=== PATIENT | male | born 1995 | race Caucasian/White ===

== ENCOUNTER 2016-12-24 05:38 | Inpatient (IN) | payer MEDICAID, OTHER ==
[~2016-12-24] VITALS: Ht 182.9 cm; Wt 86.7 kg
[2016-12-24] VITALS (11 sets, daily range): BP systolic 112–137; BP diastolic 67–94; PULSE 60–178; RESP 16–55; TEMP 98–99.8; O2SAT 96–100
[~2016-12-24 05:38] MED LIST: AMOX500T PO; CHLO.12%30 SSP; HYDR-3580 PO; PERI8.6T PO
[2016-12-24] MEDS ORDERED: HALOPERIDOL LACTATE 5 MG/ML AMP IM ONE (05:45)
[2016-12-24] MEDS ORDERED: LORazepam 2 MG/ML VIAL IM ONE (05:45)
[2016-12-24] MEDS ORDERED: SODIUM CHLOR 0.9% 1000 ML INJ 1,000 ML IV SCH (06:11)
[2016-12-24] MEDS ORDERED: SODIUM CHLOR 0.9% 1000 ML INJ 1,000 ML IV ONE ×4 (06:15→17:30)
[2016-12-24] MEDS ORDERED: SODIUM CHLORIDE 0.9% FLUSH 5 ML FLUSH IVF PRN (06:15)
[2016-12-24] MEDS ORDERED: LIDOCAINE HCL 1% 50 ML VIAL INFIL ONE (06:30)
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
[2016-12-24 06:38] LABS: AUTOMATED NEUTROPHIL # 21.4 TH/MM3 (1.8-7.7); BASOPHIL # 0.2 TH/MM3 (0-0.2); BASOPHIL % 0.7 % (0.0-2.0); EOSINOPHIL # 0.2 TH/MM3 (0-0.4); EOSINOPHIL % 0.7 % (0.0-4.0); HEMATOCRIT 54.2 % (39.0-51.0); LYMPH % 21.9 % (9.0-44.0); LYMPHOCYTE # 6.4 TH/MM3 (1.0-4.8); MEAN CELL VOLUME 95.9 FL (80.0-100.0); MEAN CORPUSCULAR HEMOGLOBIN 30.3 PG (27.0-34.0); MEAN CORPUSCULAR HGB CONC 31.6 % (32.0-36.0); NEUT % 73.7 % (16.0-70.0); PLATELET COUNT 370 TH/MM3 (150-450); RED BLOOD COUNT 5.65 MIL/MM3 (4.50-5.90); RED CELL DISTRIBUTION WIDTH 14.3 % (11.6-17.2); WHITE BLOOD COUNT 29.1 TH/MM3 (4.0-11.0)
[2016-12-24 06:44] LABS: HEMO FLAGS AUTO DIFF
[2016-12-24 06:46] LABS: APTT (PATIENT) 25.7 SEC (24.3-30.1); INTERNATIONAL NORMALIZED RATIO 1.1 RATIO; PROTHROMBIN TIME - PATIENT 12.1 SEC (9.8-11.6)
--- NOTE | 2016-12-24 06:49 | RADRPT ---
EXAM DATE/TIME: 12/24/2016 06:31 [facility] COMPARISON: No previous studies available for comparison. INDICATIONS : Right hand laceration. MEDICAL HISTORY : None. SURGICAL HISTORY : None. ENCOUNTER: Initial ACUITY: 1 day PAIN SCORE: Non-responsive. LOCATION: Right hand. FINDINGS: Soft tissue laceration with patchy gas in the soft tissues seen in the region of the second webspace. No radiopaque foreign body seen. Bones are intact and normally aligned. CONCLUSION: Second webspace soft tissue injury without radiopaque foreign body or fracture. Yoseph Boateng MD on December 24, 2016 at 6:47 Board Certified Radiologist. This report was verified electronically.
[2016-12-24 06:56] LABS: AMPHETAMINE, URINE NEG (NEG); BACTERIA, URINE RARE /hpf; BARBITURATES, URINE NEG (NEG); BLOOD, URINE MOD (NEG); COCAINE, URINE NEG (NEG); COMMENT (UR) CATH-CULTURE IND; CULTURE IF INDICATED CATH CULTURE IND; GLUCOSE,URINE 150 mg/dL (NEG); HYALINE CAST, URINE 2 /lpf (RARE); KETONE, URINE NEG (NEG); MUCUS URINE FEW /lpf (OCC); NITRITE,URINE NEG (NEG); SQUAMOUS EPITHELIAL CELL URINE <1 /hpf (0-5); URINE COLOR YELLOW (YELLW/STRAW)
[2016-12-24 07:11] LABS: ALKALINE PHOSPHATASE 128 U/L (45-117); ALT (GPT) 36 U/L (12-78); AST (GOT) 72 U/L (15-37); TOTAL BILIRUBIN ADULT 0.7 MG/DL (0.2-1.0)
[2016-12-24 07:12] LABS: ACETAMINOPHEN LESS THAN 2.0 MCG/ML (10.0-30.0)
[2016-12-24 07:16] LABS: CHLORIDE 117 MEQ/L (98-107); SODIUM (NA) 148 MEQ/L (136-145)
[2016-12-24 07:20] LABS: BLOOD UREA NITROGEN 14 MG/DL (7-18); GLOMERULAR FILTRATION RATE 86 ML/MIN (>89)
[2016-12-24 07:21] LABS: ANION GAP 27 MEQ/L (5-15); POTASSIUM 3.1 MEQ/L (3.5-5.1)
[2016-12-24 07:24] LABS: BANDS 7 % (0-6); BASOPHILS 1 % (0-2); CORRECTED NUCLEATED RBC 1 /100 WBC (0-0); CREATINE KINASE 650 U/L (39-308); EOSINOPHILS 1 % (0-4); METAMYELOCYTES 1 % (0-1); MYELOCYTES 2 % (0-0); PLATELET ESTIMATE SMEAR NORMAL (NORMAL); PLATELET MORPHOLOGY NORMAL (NORMAL); POLYS (SEG NEUTROPHILS) 62 % (16-70); SCAN/DIFF FINAL DIFF MANUAL; WBC DIFF SAMPLE 100
[2016-12-24 07:38] LABS: CKMB 2.5 NG/ML (0.5-3.6)
[2016-12-24] MEDS ORDERED: CALCIUM GLUCONATE 10% 1 GM/10 ML VIAL IV PUSH ONE (07:45)
[2016-12-24] MEDS ORDERED: PIPERACIL-TAZO 4.5 GM PREMIX 100 ML IV ONE (07:45)
[2016-12-24] MEDS ORDERED: VANCOMYCIN INJ 1,000 MG in SODIUM CHLOR 0.9% 250 ML INJ 250 ML IV ONE (07:45)
[2016-12-24] MEDS ORDERED: CALCIUM GLUCONATE INJ 1 GM in SODIUM CHLORIDE 0.9% INJ 100 ML IV ONE (08:00)
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
--- NOTE | 2016-12-24 08:05 | RADRPT ---
EXAM DATE/TIME: 12/24/2016 07:47 [facility] COMPARISON: No previous studies available for comparison. INDICATIONS : Short of breath MEDICAL HISTORY : None. SURGICAL HISTORY : None. ENCOUNTER: Initial ACUITY: 1 day PAIN SCORE: Non-responsive. LOCATION: Bilateral chest FINDINGS: A single view of the chest demonstrates the lungs to be symmetrically aerated without evidence of mas s, infiltrate or effusion. The cardiomediastinal contours are unremarkable. Osseous structures are intact. CONCLUSION: Normal examination for a patient of this age. Jeffrey Lagos MD on December 24, 2016 at 8:03 Board Certified Radiologist. This report was verified electronically.
[2016-12-24] MEDS ORDERED: POTASSIUM CHLOR 20 MEQ PREMIX 100 ML IV ONE (08:15)
[2016-12-24] MEDS ORDERED: POTASSIUM CHLORIDE 20 MEQ CONTROLLED RELEASE TAB PO ONE (08:15)
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
--- NOTE | 2016-12-24 09:01 | RADRPT ---
EXAM DATE/TIME: 12/24/2016 08:16 [facility] COMPARISON: No previous studies available for comparison. INDICATIONS : Altered mental status. RADIATION DOSE: 38.28 CTDIvol (mGy) MEDICAL HISTORY : Substance abuse. SURGICAL HISTORY : None. ENCOUNTER: Initial ACUITY: 1 day PAIN SCALE: 0/10 LOCATION: cranial TECHNIQUE: Multiple contiguous axial images were obtained of the head. Using automated exposure control and adj ustment of the mA and/or kV according to patient size, radiation dose was kept as low as reasonably a chievable to obtain optimal diagnostic quality images. FINDINGS: CEREBRUM: The ventricles are normal for age. No evidence of midline shift, mass lesion, hemorrhage or acute in farction. No extra-axial fluid collections are seen. POSTERIOR FOSSA: The cerebellum and brainstem are intact. The 4th ventricle is midline. The cerebellopontine angle i s unremarkable. EXTRACRANIAL: The visualized portion of the orbits is intact. SKULL: The calvaria is intact. No evidence of skull fracture. CONCLUSION: Normal examination for a patient of this age. Jeffrey Lagos MD on December 24, 2016 at 8:59 Board Certified Radiologist. This report was verified electronically.
[2016-12-24] MEDS ORDERED: LORazepam 2 MG/ML VIAL IV PUSH PRN ×3 (09:15)
[2016-12-24] MEDS ORDERED: NS + KCL 20 MEQ INJ 1,000 ML IV SCH (09:15)
[2016-12-24] MEDS ORDERED: FLUMAZENIL 0.5 MG/5 ML VIAL IV PUSH PRN (09:15)
[2016-12-24] MEDS ORDERED: LORazepam 2 MG TAB PO PRN (09:15)
[2016-12-24] MEDS ORDERED: SODIUM CHLORIDE 0.9% FLUSH 5 ML FLUSH IV FLUSH PRN (09:15)
[2016-12-24] MEDS: ENOXAPARIN SODIUM 30 MG/0.3 ML SYRINGE SQ SCH (09:50)
--- NOTE | 2016-12-24 12:49 | EKG ---
Date Performed: 12/24/2016 Time Performed: 08:03:14 PTAGE: 21 years EKG: SINUS TACHYCARDIA NONSPECIFIC T-WAVE ABNORMALITY ABNORMAL ECG NO PREVIOUS TRACING DOCTOR: Johnathan Sousa Interpretating Date/Time 12/24/2016 12:48:39
[2016-12-24] MEDS ORDERED: ASPIRIN 81 MG CHEW TAB TUBE ONE (14:00)
[2016-12-24] MEDS ORDERED: HEPARIN-D5W INJ 250 ML IV SCH (14:00)
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
[2016-12-24 15:59] LABS: CKMB 48.6 NG/ML (0.5-3.6)
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
[2016-12-24 16:02] LABS: BICARBONATE 16.8 MEQ/L (21.0-32.0); POTASSIUM 5.4 MEQ/L (3.5-5.1)
[2016-12-24] MEDS ORDERED: CALCIUM GLUCONATE INJ 1 GM in DEXTROSE 5% IN WATER 100ML INJ 100 ML IV ONE ×2 (17:30)
[2016-12-24] MEDS: SODIUM CHLOR 0.9% 1000 ML INJ 1,000 ML IV SCH (17:30)
[2016-12-24] MEDS ORDERED: SODIUM POLYSTYRENE SULFONATE SUSP 15 GM/60 ML CUP PO ONE (17:30)
[2016-12-24] MEDS ORDERED: HEPARIN SODIUM - IV 10,000 UNITS/10 ML VIAL IV PRN ×2 (20:00)
[2016-12-24 20:37] LABS: BICARBONATE 17.6 MEQ/L (21.0-32.0); MAGNESIUM 3.4 MG/DL (1.5-2.5); POTASSIUM 4.6 MEQ/L (3.5-5.1)
[2016-12-24] MEDS: SODIUM CHLORIDE 0.9% FLUSH 5 ML FLUSH IV FLUSH SCH (21:27)
[2016-12-24] MEDS: PRAVASTATIN SOD 40 MG TAB PO SCH (21:29)
[2016-12-24] MEDS: LORazepam 1 MG TAB PO PRN (22:10)
[2016-12-25] VITALS (24 sets, daily range): BP systolic 125–141; BP diastolic 56–92; PULSE 64–108; RESP 16–17; TEMP 98.5–99.6; O2SAT 95–98
[2016-12-25] MEDS ORDERED: HALOPERIDOL LACTATE 5 MG/ML AMP IM ONE (01:15)
[2016-12-25] MEDS: LORazepam 2 MG/ML VIAL IV PUSH PRN ×2 (01:15→03:45)
[2016-12-25] MEDS ORDERED: HALOPERIDOL LACTATE 5 MG/ML AMP IM PRN ×2 (01:15→02:15)
[2016-12-25] MEDS: SODIUM CHLOR 0.9% 1000 ML INJ 1,000 ML IV SCH ×3 (02:09→17:58)
[2016-12-25 07:28] LABS: AUTOMATED NEUTROPHIL # 11.8 TH/MM3 (1.8-7.7); BASOPHIL % 0.3 % (0.0-2.0); EOSINOPHIL % 0.2 % (0.0-4.0); HEMATOCRIT 37.6 % (39.0-51.0); HEMO FLAGS DIFF FINAL; LYMPH % 9.2 % (9.0-44.0); LYMPHOCYTE # 1.3 TH/MM3 (1.0-4.8); MEAN CELL VOLUME 90.1 FL (80.0-100.0); MEAN CORPUSCULAR HEMOGLOBIN 29.7 PG (27.0-34.0); MONO % 7.6 % (0.0-8.0); NEUT % 82.7 % (16.0-70.0); PLATELET COUNT 148 TH/MM3 (150-450); RED BLOOD COUNT 4.17 MIL/MM3 (4.50-5.90); RED CELL DISTRIBUTION WIDTH 13.6 % (11.6-17.2); WHITE BLOOD COUNT 14.2 TH/MM3 (4.0-11.0)
[2016-12-25 07:32] LABS: BICARBONATE 16.8 MEQ/L (21.0-32.0); HDL CHOLESTEROL 45.8 MG/DL (40.0-60.0); INDIRECT BILIRUBIN 0.7 MG/DL (0.0-0.8); POTASSIUM 4.3 MEQ/L (3.5-5.1); TOTAL BILIRUBIN ADULT 0.9 MG/DL (0.2-1.0)
[2016-12-25] MEDS: ASPIRIN EC 81 MG TABEC PO SCH (09:00)
[2016-12-25] MEDS: SODIUM CHLORIDE 0.9% FLUSH 5 ML FLUSH IV FLUSH SCH ×2 (09:00→20:36)
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
[2016-12-25] MEDS: ENOXAPARIN SODIUM 30 MG/0.3 ML SYRINGE SQ SCH (09:10)
--- NOTE | 2016-12-25 10:26 | EKG ---
Date Performed: 12/24/2016 Time Performed: 18:07:44 PTAGE: 21 years EKG: Sinus rhythm Rightward axis Borderline ECG Compared to prior tracing no significant change PREVIOUS TRACING : 12/24/2016 13.06 DOCTOR: Juan Carlos Mascorro Interpretating Date/Time 12/25/2016 10:24:22
--- NOTE | 2016-12-25 10:26 | EKG ---
Date Performed: 12/24/2016 Time Performed: 11:16:41 PTAGE: 21 years EKG: SINUS TACHYCARDIA ABNORMAL RHYTHM ECG Compared to prior tracing no significant change PREVIOUS TRACING : 12/24/2016 08.03 DOCTOR: Juan Carlos Mascorro Interpretating Date/Time 12/25/2016 10:24:40
--- NOTE | 2016-12-25 10:26 | EKG ---
Date Performed: 12/24/2016 Time Performed: 13:06:14 PTAGE: 21 years EKG: Sinus rhythm NORMAL ECG Compared to prior tracing no significant change PREVIOUS TRACING : 12/24/2016 11.16 DOCTOR: Juan Carlos Mascorro Interpretating Date/Time 12/25/2016 10:24:30
--- NOTE | 2016-12-25 12:42 | EC ---
Study Study Date:12/25/2016 STUDY CONCLUSIONS SUMMARY - Left ventricle: The cavity size was normal. Wall thickness was normal. Systolic function was normal. The estimated ejection fraction was in the range of 55% to 60%. Wall motion was normal; there were no regional wall motion abnormalities. - Pulmonary arteries: PA peak pressure: 32mm Hg (S). Impressions: Normal study. If LV function is below 40, please consider prescribing an ACEI or ARB or document rationale for non-use. PROCEDURE DATA STUDY STATUS: Elective. Procedure: Transthoracic echocardiography. Image quality was good. Scanning was performed from the parasternal, apical, and subcostal acoustic windows. Study completion: The patient tolerated the procedure well. Transthoracic echocardiography. M-mode, complete 2D, complete spectral Doppler, and color Doppler. Patient status: Inpatient. CARDIAC ANATOMY LEFT VENTRICLE: The cavity size was normal. Wall thickness was normal. Systolic function was normal. The estimated ejection fraction was in the range of 55% to 60%. Wall motion was normal; there were no regional wall motion abnormalities. AORTIC VALVE: Trileaflet; normal thickness leaflets. Doppler: Transvalvular velocity was within the normal range. There was no stenosis. No regurgitation. AORTA: Aortic root: The aortic root was normal in size. MITRAL VALVE: Structurally normal valve. Doppler: Transvalvular velocity was within the normal range. There was no evidence for stenosis. No regurgitation. Peak gradient: 4mm Hg (D). LEFT ATRIUM: The atrium was normal in size. RIGHT VENTRICLE: The cavity size was normal. Wall thickness was normal. PULMONIC VALVE: Doppler: Transvalvular velocity was within the normal range. There was no evidence for stenosis. No regurgitation. TRICUSPID VALVE: Structurally normal valve. Doppler: Transvalvular velocity was within the normal range. No regurgitation. PULMONARY ARTERY: The main pulmonary artery was normal-sized. Systolic pressure was within the normal range. RIGHT ATRIUM: The atrium was normal in size. PERICARDIUM: There was no pericardial effusion. SYSTEMIC VEINS: Inferior vena cava: The vessel was normal in size. BASIC MEASUREMENTS ADULT Normal Left ventricle LV internal dimension, ED, chordal level, *42.6 mm 43-52 PLAX LV internal dimension, ES, chordal level, 31.9 mm 23-38 PLAX Fractional shortening, chordal level, PLAX *25 % >29 LV posterior wall thickness, ED 6.12 mm IVS/LVPW ratio, ED *1.49 <1.3 Ventricular septum Septal thickness, ED 9.13 mm Aortic valve Leaflet separation 21 mm 15-26 Left atrium Anterior-posterior dimension 36 mm Right ventricle RV internal dimension, ED, PLAX 24.9 mm 19-38 BASIC MEASUREMENTS ADULT Normal Aortic valve Leaflet separation 21 mm 15-26 Aorta Root diameter, ED 30 mm 20-37 DOPPLER MEASUREMENTS ADULT Normal Main pulmonary artery Pressure, S *32 mm Hg =30 Mitral valve Peak E-wave velocity 100 cm/s Peak A-wave velocity 45.2 cm/s Peak gradient, D 4 mm Hg Peak E/A ratio 2.2 Tricuspid valve Regurgitant peak velocity 234 cm/s Peak RV-RA gradient, S 22 mm Hg Maximal regurgitant velocity 234 cm/s Systemic veins Estimated CVP 10 mm Hg Right ventricle RV pressure, S *32 mm Hg <30 LEGEND: Mean values are shown as u=mean value. Asterisk (*) crouch values outside specified normal range. Prepared and signed by Juan Carlos Mascorro [id number]
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
[2016-12-25] MEDS: risperiDONE 1 MG TAB PO SCH ×2 (15:06→20:36)
[2016-12-25 15:30] LABS: BICARBONATE 16.2 MEQ/L (21.0-32.0); POTASSIUM 4.1 MEQ/L (3.5-5.1)
--- NOTE | 2016-12-25 15:45 | HHI.PR ---
Subjective Remarks Follow-up for altered mental status, renal failure Patient became acutely paranoid last night, became combative, patient restraint. The patient feels better and remembers everything that happened last night. Patient feels better compared to yesterday, no nausea or vomiting but still with generalized soreness. Creatinine is worsening. Objective Vitals Vital Signs Date Time Temp Pulse Resp B/P Pulse Ox O2 Delivery O2 Flow Rate FiO2 12/25/16 13:00 75 12/25/16 12:00 98.8 94 16 137/81 95 12/25/16 12:00 88 12/25/16 11:00 82 12/25/16 10:00 77 12/25/16 09:00 107 12/25/16 08:45 98.9 87 16 125/74 96 12/25/16 08:00 83 12/25/16 07:00 81 12/25/16 05:01 99.6 84 16 131/76 95 12/25/16 05:00 84 12/25/16 04:00 84 12/25/16 03:00 78 12/25/16 02:00 76 12/25/16 00:00 83 12/24/16 23:00 99.8 85 16 129/78 96 12/24/16 23:00 73 12/24/16 22:00 60 12/24/16 21:00 88 12/24/16 20:00 99.7 66 16 132/94 96 12/24/16 20:00 89 12/24/16 19:00 89 12/24/16 16:30 98.0 78 16 134/86 98 I/O 12/24/16 12/24/16 12/24/16 12/25/16 12/25/16 12/25/16 07:00 15:00 23:00 07:00 15:00 23:00 Output Total 800 ml 250 ml Balance -800 ml -250 ml Output Urine Total 800 ml 250 ml # Voids 0 0 # Bowel Movements 1 Result Diagram: 12/25/16 0620 12/25/16 1447 Objective Remarks GENERAL: Not in acute distress, well-nourished. Unkempt. HEAD: Atraumatic. Normocephalic. No temporal or scalp tenderness. EYES: PERRL, full EOMs, no jaundice, nonicteric, pink conjunctivae without injection, moist mucosa ENT: Nose without bleeding, purulent drainage. Throat without erythema, tonsillar hypertrophy or exudate. Dry oral mucosa. NECK: Trachea midline, no mass, no obvious thyromegaly. CARDIOVASCULAR: Regular rate, rhythm without murmurs, gallops, or rubs. RESPIRATORY: Clear to auscultation with normal respiratory effort. Breath sounds equal bilaterally. No use of accessory muscles of respiration. GASTROINTESTINAL: Abdomen soft, normal bowel sounds, non-tender, nondistended. No hepato-splenomegaly or palpable mass. No guarding. CORY and exam deferred. MUSCULOSKELETAL: Extremities without clubbing, cyanosis, or edema. Distal pulses intact, 2+ bilaterally. Left hand dressings in place. Right foot dorsal , medial aspect, with circumscribed area of erythema, tenderness and swelling. Small laceration left plantar aspect, first great toe. INTEGUMENTARY: Warm and dry, no rash of generalized distribution. NEUROLOGICAL: Awake, alert, oriented 3. No obvious cranial nerve deficits. Moves all 4 extremities, muscle strength testing 5 over 5. Motor and sensory grossly within normal limits. .Supple neck, no meningeal signs. No focal neurologic deficits. Calm. A/P Assessment and Plan This is a 21-year-old male admitted for altered mental status and possible sepsis Acute toxic metabolic encephalopathy possibly secondary to Xanax withdrawal- likely secondary to metabolic disturbance and possible sepsis. Urinalysis unremarkable for infection, chest x-ray personally reviewed is negative. Continue IVF, antibiotics as below. CIMO protocol, became combative last night, psychiatry consulted, continue restraints for now Probable sepsis, rule out right foot cellulitis- patient with leukocytosis, tachycardia, and possible cellulitis, urinalysis and chest x-ray as above are negative. Continue Ancef, x-ray of the foot revealed previous fracture. Obtain records from [facility], allegedly there was a fracture previously , status post suturing. LFTs improving Acute renal failure possibly secondary to rhabdomyolysis-check urinalysis, ultrasound of the kidneys, consult nephrology. Continue IVF. Severe dehydration-continue IVF. Hyponatremia-likely secondary to dehydration, continue IVF Hypokalemia-replaced Hypocalcemia-replace again today. Metabolic acidosis- continue IVF Mild troponin elevation-no cardiac history, patient is a smoker, no chest pain. Cardiology has seen the patient, troponin release likely secondary to metabolic disturbance, CT scan of the coronaries. If negative, no further diagnostics. DVT prophylaxis: Lovenox Discussed with patient's mother Keon Lindquist MD Dec 25, 2016 15:45
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
[2016-12-25] MEDS: PRAVASTATIN SOD 40 MG TAB PO SCH (20:36)
[2016-12-25] MEDS: SODIUM BICARBONATE 8.4% INJ 75 MEQ in SODIUM CHLOR 0.45% 1000 ML INJ 1,000 ML IV SCH (20:36)
[2016-12-25] MEDS: LORazepam 1 MG TAB PO PRN (21:30)
[2016-12-25] MEDS: ONDANSETRON HCL 4 MG/2 ML VIAL IV PUSH PRN (22:14)
[2016-12-25] MEDS ORDERED: ACETAMINOPHEN 325 MG TAB PO ONE (22:15)
[2016-12-26] VITALS (25 sets, daily range): BP systolic 132–153; BP diastolic 76–89; PULSE 50–80; RESP 16–20; TEMP 98.3–99.2; O2SAT 95–98
[2016-12-26] MEDS: SODIUM BICARBONATE 8.4% INJ 75 MEQ in SODIUM CHLOR 0.45% 1000 ML INJ 1,000 ML IV SCH ×5 (01:13→17:52)
[2016-12-26] MEDS: LORazepam 1 MG TAB PO PRN (04:40)
[2016-12-26 06:26] LABS: BICARBONATE 18.8 MEQ/L (21.0-32.0); POTASSIUM 3.9 MEQ/L (3.5-5.1)
[2016-12-26 06:41] LABS: CKMB 7.6 NG/ML (0.5-3.6)
[2016-12-26] MEDS: SODIUM CHLORIDE 0.9% FLUSH 5 ML FLUSH IV FLUSH SCH ×2 (08:52→21:02)
[2016-12-26] MEDS: risperiDONE 1 MG TAB PO SCH ×2 (08:52→20:54)
[2016-12-26] MEDS: ONDANSETRON HCL 4 MG/2 ML VIAL IV PUSH PRN (08:52)
[2016-12-26] MEDS: ASPIRIN EC 81 MG TABEC PO SCH (08:52)
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
--- NOTE | 2016-12-26 12:58 | HHI.PR ---
Subjective Remarks Follow-up for renal failure, rhabdomyolysis Good urine output, creatinine still increasing, complaining of generalized soreness but better, but now also with abdominal pain, nausea and vomiting post prandial material, associated with diarrhea, loose stools, nonbloody. Objective Vitals Vital Signs Date Time Temp Pulse Resp B/P Pulse Ox O2 Delivery O2 Flow Rate FiO2 12/26/16 07:30 98.9 77 20 132/85 95 12/26/16 06:00 62 12/26/16 05:00 62 12/26/16 04:00 59 12/26/16 03:00 56 12/26/16 03:00 98.5 60 16 134/76 98 12/26/16 02:00 52 12/26/16 01:00 61 12/26/16 00:15 98.3 62 16 132/76 98 12/26/16 00:00 61 12/25/16 23:00 67 12/25/16 22:00 79 12/25/16 21:00 89 12/25/16 20:00 98.8 75 16 141/92 98 12/25/16 20:00 78 12/25/16 19:00 64 12/25/16 18:00 64 12/25/16 17:00 69 12/25/16 16:00 74 12/25/16 15:50 98.5 108 17 133/56 95 12/25/16 15:00 72 12/25/16 13:00 75 I/O 12/25/16 12/25/16 12/25/16 12/26/16 12/26/16 12/26/16 07:00 15:00 23:00 07:00 15:00 23:00 Intake Total 2480 ml 2240 ml Output Total 550 ml Balance 2480 ml 1690 ml Intake Oral 480 ml 240 ml IV Total 2000 ml 2000 ml Output Urine Total 550 ml # Voids 4 Result Diagram: 12/25/16 0620 12/26/16 0515 Objective Remarks GENERAL: Not in acute distress, well-nourished. Unkempt. HEAD: Atraumatic. Normocephalic. EYES: PERRL, full EOMs, no jaundice, nonicteric, pink conjunctivae ENT: Nose without bleeding, purulent drainage. Dry oral mucosa. NECK: Trachea midline, no mass, no obvious thyromegaly. CARDIOVASCULAR: Regular rate, rhythm without murmurs, gallops, or rubs. RESPIRATORY: Clear to auscultation with normal respiratory effort. Breath sounds equal bilaterally. No use of accessory muscles of respiration. GASTROINTESTINAL: Abdomen soft, normal bowel sounds, non-tender, nondistended. MUSCULOSKELETAL: Extremities without clubbing, cyanosis, or edema. INTEGUMENTARY: Warm and dry, no rash of generalized distribution. NEUROLOGICAL: Sleepy but easily arousable, oriented 3, no focal deficits. Calm. A/P Assessment and Plan This is a 21-year-old male admitted for altered mental status and possible sepsis Acute toxic metabolic encephalopathy possibly secondary to Xanax withdrawal- likely secondary to metabolic disturbance and possible sepsis. Urinalysis unremarkable for infection, chest x-ray personally reviewed is negative. Continue IVF, antibiotics as below. CIWA protocol, patient now more calm, hold off on strengths. Probable sepsis, rule out right foot cellulitis- patient with leukocytosis, tachycardia, and possible cellulitis, urinalysis and chest x-ray as above are negative. Continue Ancef, x-ray of the foot revealed previous fracture. Obtain records from [facility], allegedly there was a fracture previously , status post suturing. LFTs improving Diarrhea-patient complaining of abdominal pain across the transverse upper quadrant and left lower quadrant, check CT scan of the abdomen. Send for C. difficile. Recheck CBC and BMP tomorrow. Start Flagyl. Acute renal failure possibly secondary to rhabdomyolysis- ultrasound unremarkable, nephrology following, continue IVF. Severe dehydration-continue IVF. Hyponatremia-likely secondary to dehydration, continue IVF Hypokalemia-replaced Hypocalcemia-replace again today. Metabolic acidosis- continue IVF Mild troponin elevation-no cardiac history, patient is a smoker, no chest pain. Cardiology has seen the patient, troponin release likely secondary to metabolic disturbance, CT scan of the coronaries. If negative, no further diagnostics. DVT prophylaxis: Lovenox Discussed with patient's mother Keon Lindquist MD Dec 26, 2016 12:58
[2016-12-26] MEDS ORDERED: DIATRIZOATE MEGLUM/DIATRIZOATE SOD 9 ML CUP PO ONE (14:00)
[2016-12-26] MEDS ORDERED: POTASSIUM CHLORIDE 20 MEQ CONTROLLED RELEASE TAB PO ONE (14:15)
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
[2016-12-26] MEDS: metroNIDAZOLE 500 MG INJ 100 ML IV SCH ×2 (16:16→20:54)
[2016-12-26 19:17] LABS: C. DIFF EPI 027 PRESUMPTIVE NEGATIVE (NEGATIVE)
[2016-12-26 19:54] LABS: C. DIFF TOXIN PCR POSITIVE (NEGATIVE)
--- NOTE | 2016-12-26 20:14 | RADRPT ---
EXAM DATE/TIME: 12/26/2016 19:45 [facility] COMPARISON: No previous studies available for comparison. INDICATIONS : Abdominal pain; evaluate for colitis. ORAL CONTRAST: Prescribed oral contrast ingested. RADIATION DOSE: 6.88 CTDIvol (mGy) MEDICAL HISTORY : None SURGICAL HISTORY : None. ENCOUNTER: Initial ACUITY: 1 day PAIN SCALE: 5/10 LOCATION: Abdomen/pelvis TECHNIQUE: Volumetric scanning of the abdomen and pelvis was performed. Using automated exposure control and ad justment of the mA and/or kV according to patient size, radiation dose was kept as low as reasonably achievable to obtain optimal diagnostic quality images. FINDINGS: There are bilateral pleural effusions being mild to moderate on the right and mild on the left. The liver, spleen, pancreas, adrenal glands and kidneys appear grossly normal for a noncontrast CT examin ation. There is edema/fluid seen in the annika hepatis region and the right paracolic gutter region. The bowel appears unremarkable for a standard CT examination. There is a mild amount of ascites see n in the pelvis. There is a small amount of air seen within the urinary bladder. A Montgomery catheter i s not seen. CONCLUSION: 1. Fluid at the annika hepatis region and paracolic gutter region and ascites. This is nonspecific. Some of the ascites is centered around the pancreatic head region raising the possibility of pancreat itis. The exact cause of the ascites is not known. 2. The colon appears grossly normal. 3. A small amount of air within the bladder appears to be correlated with the patient being recently catheterized. 4. Mild to moderate right pleural effusion and mild left pleural effusion. Yoseph Triplett MD on December 26, 2016 at 19:57 Board Certified Radiologist. This report was verified electronically.
[2016-12-26] MEDS: PRAVASTATIN SOD 40 MG TAB PO SCH (20:54)
[2016-12-27 00:07] VITALS: BP 139/83; PULSE 52; RESP 18; TEMP 100.3; O2SAT 95
[2016-12-27] MEDS: SODIUM BICARBONATE 8.4% INJ 75 MEQ in SODIUM CHLOR 0.45% 1000 ML INJ 1,000 ML IV SCH ×5 (01:41→21:10)
[2016-12-27 03:30] VITALS: BP 139/66; PULSE 57; RESP 20; TEMP 98.5; O2SAT 94
[2016-12-27] MEDS: metroNIDAZOLE 500 MG INJ 100 ML IV SCH ×3 (06:01→22:39)
[2016-12-27 08:00] VITALS: BP 152/85; PULSE 50; RESP 20; TEMP 98.5; O2SAT 94
[2016-12-27] MEDS: risperiDONE 1 MG TAB PO SCH ×2 (09:14→22:38)
[2016-12-27] MEDS: ASPIRIN EC 81 MG TABEC PO SCH (09:15)
[2016-12-27] MEDS: SODIUM CHLORIDE 0.9% FLUSH 5 ML FLUSH IV FLUSH SCH ×2 (09:16→22:38)
[2016-12-27 12:00] VITALS: BP 136/74; PULSE 56; RESP 20; TEMP 98.7; O2SAT 93
[2016-12-27 14:13] LABS: AUTOMATED NEUTROPHIL # 7.9 TH/MM3 (1.8-7.7); BASOPHIL % 0.4 % (0.0-2.0); EOSINOPHIL # 0.2 TH/MM3 (0-0.4); EOSINOPHIL % 1.6 % (0.0-4.0); HEMATOCRIT 35.6 % (39.0-51.0); HEMO FLAGS DIFF FINAL; LYMPH % 13.4 % (9.0-44.0); LYMPHOCYTE # 1.4 TH/MM3 (1.0-4.8); MEAN CELL VOLUME 88.1 FL (80.0-100.0); MEAN CORPUSCULAR HGB CONC 34.1 % (32.0-36.0); MONO % 8.1 % (0.0-8.0); NEUT % 76.5 % (16.0-70.0); PLATELET COUNT 130 TH/MM3 (150-450); RED BLOOD COUNT 4.04 MIL/MM3 (4.50-5.90); RED CELL DISTRIBUTION WIDTH 13.3 % (11.6-17.2); WHITE BLOOD COUNT 10.4 TH/MM3 (4.0-11.0)
[2016-12-27 14:36] LABS: BICARBONATE 23.4 MEQ/L (21.0-32.0); MAGNESIUM 2.1 MG/DL (1.5-2.5); POTASSIUM 3.7 MEQ/L (3.5-5.1)
[2016-12-27 15:14] LABS: CKMB 1.8 NG/ML (0.5-3.6)
[2016-12-27 16:00] VITALS: BP 158/90; PULSE 50; RESP 20; TEMP 98.9; O2SAT 95
[2016-12-27] MEDS ORDERED: MORPHINE SULFATE 8 MG/ML INJ IV PUSH PRN (16:00)
--- NOTE | 2016-12-27 18:11 | HHI.NPPN ---
Subjective History of Present Illness 21-year-old male apparently with a history of substance abuse. His mother was by the bedside who provided some history. Patient himself is not cooperative. Apparently this patient was admitted to this institution in the morning of December 24, 2016. There is a history of the patient being found confused, agitated with paranoid behavior. Initially his creatinine level was 1.0 but was evidence of hyponatremia, hypokalemia and metabolic acidosis with a high anion gap. CPK level was initially 650 subsequently deepa to a level 6338 yesterday. Patient also developed progressive azotemia. Creatinine level on day of consultation was 4.04. Patient himself not forthcoming in regard to exactly what he used except that he was smoking marijuana. The mother however indicated to me that this patient has used synthetic marijuana previously. Interval History Patient sitting up in bed. No verbal complaints. Mother by bedside. Objective Data Data 12/26/16 12/27/16 19:00 07:00 Intake Total 3500 ml Output Total 1300 ml 250 ml Balance 2200 ml -250 ml Intake Oral 1000 ml IV Total 2500 ml Output Urine Total 1300 ml 250 ml # Voids 1 # Bowel Movements 2 2 Vital Signs Date Time Temp Pulse Resp B/P Pulse Ox O2 Delivery O2 Flow Rate FiO2 12/27/16 09:00 Room Air 12/27/16 08:00 98.5 50 20 152/85 94 12/27/16 08:00 Room Air 12/27/16 03:30 98.5 57 20 139/66 94 12/27/16 00:07 100.3 52 18 139/83 95 12/26/16 20:14 98.5 57 18 143/80 95 12/26/16 18:10 143/80 -: 12/27/16 1332 12/27/16 1332 Physical Exam General Appearance: No Acute Distress Eyes Eye Exam: Pupils Equal, Pupils Reactive Throat Throat Exam: Oral Mucosa [place] & Moist Neck Neck Exam: Neck Supple, Trachea Midline Pulmonary Resp Exam: Clear Bilaterally, Breath Sounds Equal Cardiology CV Exam: Regular, Normal Sinus Rhythm Gastrointestinal/Abdomen GI Exam: Soft, Non-Tender Integumentary Skin Exam: Clear, Warm Extremeties Extremities Exam: No Edema Neurologic Neuro Exam: Alert, Awake Psychiatric Psych Exam: Appropriate Responses Assessment/Plan Problem List: (1) ALIYAH (acute kidney injury) Plan: . Patient's creatinine level today slightly better than yesterday. Hopefully this is the peak with subsequent improvement in renal indices. As will be determined tomorrow. At this point in time reduce IV fluids. I counseled the patient regarding the probable etiology of his acute renal failure. He was strongly advised to avoid substance abuse in the future which could result in recurrence of acute kidney injury which could be permanent with requirement for dialytic support. That of course remains the patient's decision. I believe that the patient's initial acute renal failure multifactorial. Contributory factors include dehydration given the fact that the patient had hyponatremia on presentation with high hematocrit. In addition the patient appears to have rhabdomyolysis and may have sustained an acute kidney injury secondary to same. In addition use of synthetic marijuana which actually refers to 100s of possible substance combinations can be associated with rhabdomyolysis as well as acute kidney injury so I do have a high suspicion of the patient did utilize synthetic marijuana prior to presentation. Medications should be adjusted for the patient's estimated GFR if clinically indicated. Avoid agents with significant potential for nephrotoxicity possible including NSAIDs for analgesia, iodine contrast agents. Gadolinium is contraindicated if the GFR is below 30. (2) Rhabdomyolysis Plan: CPK improving slowly. (3) Metabolic acidosis Plan: Improving. Continue to monitor. (4) Polysubstance abuse Plan: Problem Qualifiers (1) Rhabdomyolysis: Qualified Code: M62.82 - Non-traumatic rhabdomyolysis Willow Mathews MD Dec 27, 2016 18:11
--- NOTE | 2016-12-27 18:27 | HHI.PR ---
Subjective Remarks patient feels better, lucid, abdominal pain still present but better, good UO Objective Vitals Vital Signs Date Time Temp Pulse Resp B/P Pulse Ox O2 Delivery O2 Flow Rate FiO2 12/27/16 09:00 Room Air 12/27/16 08:00 98.5 50 20 152/85 94 12/27/16 08:00 Room Air 12/27/16 03:30 98.5 57 20 139/66 94 12/27/16 00:07 100.3 52 18 139/83 95 12/26/16 20:14 98.5 57 18 143/80 95 I/O 12/26/16 12/26/16 12/26/16 12/27/16 12/27/16 12/27/16 06:59 14:59 22:59 06:59 14:59 22:59 Intake Total 2240 ml 3500 ml Output Total 550 ml 1300 ml 250 ml Balance 1690 ml 2200 ml -250 ml Intake Oral 240 ml 1000 ml IV Total 2000 ml 2500 ml Output Urine Total 550 ml 1300 ml 250 ml # Voids 1 # Bowel Movements 3 1 Result Diagram: 12/27/16 1332 12/27/16 1332 Objective Remarks GENERAL: Not in acute distress, well-nourished. Unkempt. HEAD: Atraumatic. Normocephalic. EYES: PERRL, full EOMs, no jaundice, nonicteric, pink conjunctivae ENT: Nose without bleeding, purulent drainage. Dry oral mucosa. NECK: Trachea midline, no mass, no obvious thyromegaly. CARDIOVASCULAR: Regular rate, rhythm without murmurs, gallops, or rubs. RESPIRATORY: Clear to auscultation with normal respiratory effort. Breath sounds equal bilaterally. No use of accessory muscles of respiration. GASTROINTESTINAL: Abdomen soft, normal bowel sounds, non-tender, nondistended. MUSCULOSKELETAL: Extremities without clubbing, cyanosis, or edema. INTEGUMENTARY: Warm and dry, no rash of generalized distribution. NEUROLOGICAL: Sleepy but easily arousable, oriented 3, no focal deficits. Calm. A/P Assessment and Plan This is a 21-year-old male admitted for altered mental status and possible sepsis Acute toxic metabolic encephalopathy possibly secondary to Xanax withdrawal- likely secondary to metabolic disturbance and possible sepsis. Urinalysis unremarkable for infection, chest x-ray personally reviewed is negative. Continue IVF, antibiotics as below. CIWA protocol, patient now more calm, hold off on strengths. Probable sepsis, rule out right foot cellulitis- patient with leukocytosis, tachycardia, and possible cellulitis, urinalysis and chest x-ray as above are negative. Continue Ancef, x-ray of the foot revealed previous fracture. Obtain records from [facility], allegedly there was a fracture previously , status post suturing. LFTs improving C diff diarrhea -patient complaining of abdominal pain across the transverse upper quadrant and left lower quadrant,CT abdomen showed ascites and possible pancreatitis. C diff (+) , cont Flagyl. Recheck CBC tomorrow. Check lipase, might need paracentesis. Acute renal failure possibly secondary to rhabdomyolysis- ultrasound unremarkable, crea better, nephrology following, continue IVF. Severe dehydration-continue IVF. Hyponatremia-likely secondary to dehydration, continue IVF Hypokalemia-replaced Hypocalcemia-replace again today. Metabolic acidosis- continue IVF Mild troponin elevation-no cardiac history, patient is a smoker, no chest pain. Cardiology has seen the patient, troponin release likely secondary to metabolic disturbance, CT scan of the coronaries. If negative, no further diagnostics. DVT prophylaxis: Lovenox Discussed with patient's mother Keon Lindquist MD Dec 27, 2016 18:27
[2016-12-27] MEDS ORDERED: POTASSIUM CHLORIDE 10 MEQ CONTROLLED RELEASE TAB PO ONE (18:30)
[2016-12-27 20:10] VITALS: BP 150/77; PULSE 61; RESP 20; TEMP 99.4; O2SAT 95
[2016-12-27] MEDS: PRAVASTATIN SOD 40 MG TAB PO SCH (22:38)
[2016-12-28] VITALS: BP 135/87; PULSE 55; RESP 18; TEMP 98.8; O2SAT 93
[2016-12-28 04:00] VITALS: BP 143/87; PULSE 68; RESP 20; TEMP 98.5; O2SAT 93
[2016-12-28] MEDS: SODIUM BICARBONATE 8.4% INJ 75 MEQ in SODIUM CHLOR 0.45% 1000 ML INJ 1,000 ML IV SCH (04:20)
[2016-12-28] MEDS: metroNIDAZOLE 500 MG INJ 100 ML IV SCH ×3 (06:06→20:52)
[2016-12-28 06:19] LABS: HEMATOCRIT 32.4 % (39.0-51.0); MEAN CELL VOLUME 88.8 FL (80.0-100.0); MEAN CORPUSCULAR HEMOGLOBIN 30.3 PG (27.0-34.0); MEAN CORPUSCULAR HGB CONC 34.1 % (32.0-36.0); PLATELET COUNT 121 TH/MM3 (150-450); RED BLOOD COUNT 3.65 MIL/MM3 (4.50-5.90); RED CELL DISTRIBUTION WIDTH 13.1 % (11.6-17.2); REVIEW FLAG FINAL; WHITE BLOOD COUNT 8.6 TH/MM3 (4.0-11.0)
[2016-12-28 06:34] LABS: BICARBONATE 24.4 MEQ/L (21.0-32.0); POTASSIUM 3.8 MEQ/L (3.5-5.1)
[2016-12-28 08:00] VITALS: BP 142/69; PULSE 57; RESP 20; TEMP 98.4; O2SAT 93
[2016-12-28] MEDS: risperiDONE 1 MG TAB PO SCH ×2 (09:03→20:53)
[2016-12-28] MEDS: SODIUM CHLORIDE 0.9% FLUSH 5 ML FLUSH IV FLUSH SCH ×2 (09:03→20:53)
[2016-12-28] MEDS: ASPIRIN EC 81 MG TABEC PO SCH (09:03)
--- NOTE | 2016-12-28 09:58 | HHI.PR ---
Subjective Remarks Follow-up for diarrhea, abdominal pain Abdominal pain better, about 5/10, with dry heaves but no nausea or vomiting. Diarrhea has stopped. Afebrile. Good urine output. Patient is hungry and has appetite. Objective Vitals Vital Signs Date Time Temp Pulse Resp B/P Pulse Ox O2 Delivery O2 Flow Rate FiO2 12/28/16 04:00 Room Air 12/28/16 04:00 98.5 68 20 143/87 93 12/28/16 00:00 Room Air 12/28/16 00:00 98.8 55 18 135/87 93 12/27/16 20:10 Room Air 12/27/16 20:10 99.4 61 20 150/77 95 12/27/16 16:00 98.9 50 20 158/90 95 12/27/16 12:00 98.7 56 20 136/74 93 I/O 12/27/16 12/27/16 12/27/16 12/28/16 12/28/16 12/28/16 07:00 15:00 23:00 07:00 15:00 23:00 Intake Total 360 ml 1743 ml 1371 ml Output Total 250 ml 1025 ml 1300 ml Balance -250 ml -665 ml 1743 ml 71 ml Intake Oral 360 ml 0 ml IV Total 1743 ml 1371 ml Output Urine Total 250 ml 1025 ml 1300 ml # Voids 3 2 # Bowel Movements 1 3 1 1 0 Result Diagram: 12/28/16 0556 12/28/16 0556 Objective Remarks GENERAL: Not in acute distress, well-nourished. Unkempt. HEAD: Atraumatic. Normocephalic. EYES: PERRL, full EOMs, no jaundice, nonicteric, pink conjunctivae ENT: Nose without bleeding, purulent drainage. Dry oral mucosa. NECK: Trachea midline, no mass, no obvious thyromegaly. CARDIOVASCULAR: Regular rate, rhythm without murmurs, gallops, or rubs. RESPIRATORY: Clear to auscultation with normal respiratory effort. Breath sounds equal bilaterally. No use of accessory muscles of respiration. GASTROINTESTINAL: Abdomen soft, normal bowel sounds, mildly tender, very mildly distended. No obvious ascites. MUSCULOSKELETAL: Extremities without clubbing, cyanosis, or edema. INTEGUMENTARY: Warm and dry, no rash of generalized distribution. NEUROLOGICAL: Awake, alert, oriented 3, no focal deficits. A/P Assessment and Plan This is a 21-year-old male admitted for altered mental status andsepsis Acute toxic metabolic encephalopathy possibly secondary to Xanax withdrawal- likely secondary to metabolic disturbance and possible sepsis. Urinalysis unremarkable for infection, chest x-ray personally reviewed is negative. Continue IVF, antibiotics as below. CIWA protocol, patient now more calm Probable sepsis, ruled out right foot cellulitis- patient with leukocytosis, tachycardia, and possible cellulitis, urinalysis and chest x-ray as above are negative. Stop Ancef, x-ray of the foot revealed previous fracture. LFTs improving C diff diarrhea with sepsis -patient complaining of abdominal pain across the transverse upper quadrant and left lower quadrant,CT abdomen showed ascites and possible pancreatitis. C diff (+) , cont Flagyl. Diarrhea improving. ? Pancreatitis-CT scan also showed mild ascites, lipase is normal. Advance diet to full liquid and advance as tolerated, check ultrasound for ascites, paracentesis if with significant volume. Acute renal failure possibly secondary to rhabdomyolysis- ultrasound unremarkable, crea improving, CK improving, decrease IVF, switch to normal saline, nephrology following. Recheck BMP tomorrow. Severe dehydration-continue IVF. Hyponatremia-likely secondary to dehydration, continue IVF, resolved. Hypokalemia-replaced Hypocalcemia-replaced Metabolic acidosis-resolved. Mild troponin elevation-no cardiac history, patient is a smoker, no chest pain. Cardiology has seen the patient, troponin release likely secondary to metabolic disturbance, echocardiogram did not show any wall motion abnormalities , preserved ejection fraction. Stop aspirin. DVT prophylaxis: Lovenox Discussed with patient's mother Discharge Planning Discharge in 1-2 days once cleared by nephrology and diarrhea improving. Keon Lindquist MD Dec 28, 2016 09:58
[2016-12-28] MEDS ORDERED: ACETAMINOPHEN 325 MG TAB PO PRN (10:00)
[2016-12-28] MEDS ORDERED: NALOXONE HCL 0.4 MG/ML AMP IV PRN (10:00)
[2016-12-28 12:00] VITALS: BP 152/90; PULSE 53; RESP 20; TEMP 98.3; O2SAT 95
[2016-12-28] MEDS: SODIUM CHLOR 0.9% 1000 ML INJ 1,000 ML IV SCH ×2 (12:04→20:23)
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
[2016-12-28 16:00] VITALS: BP 161/89; PULSE 49; RESP 20; TEMP 98.5; O2SAT 95
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
[2016-12-28 20:00] VITALS: BP 152/92; PULSE 53; RESP 20; TEMP 98.4; O2SAT 96
[2016-12-28] MEDS: PRAVASTATIN SOD 40 MG TAB PO SCH (20:53)
[2016-12-28] MEDS: HEPARIN SODIUM - SQ 10,000 UNITS/ML VIAL SQ SCH (21:00)
[2016-12-29] VITALS: BP 153/78; PULSE 78; RESP 20; TEMP 98.6; O2SAT 94
[2016-12-29 04:00] VITALS: BP 151/81; PULSE 61; RESP 20; TEMP 98.7; O2SAT 93
[2016-12-29] MEDS: SODIUM CHLOR 0.9% 1000 ML INJ 1,000 ML IV SCH (05:44)
[2016-12-29] MEDS: ONDANSETRON HCL 4 MG/2 ML VIAL IV PUSH PRN ×3 (05:44→20:44)
[2016-12-29] MEDS: metroNIDAZOLE 500 MG INJ 100 ML IV SCH ×3 (05:45→20:43)
[2016-12-29 08:00] VITALS: BP 133/74; PULSE 60; RESP 18; TEMP 98.1; O2SAT 93
[2016-12-29] MEDS: SODIUM CHLORIDE 0.9% FLUSH 5 ML FLUSH IV FLUSH SCH ×2 (09:00→20:51)
[2016-12-29 09:15] LABS: BICARBONATE 24.5 MEQ/L (21.0-32.0); POTASSIUM 3.5 MEQ/L (3.5-5.1)
[2016-12-29] MEDS: risperiDONE 1 MG TAB PO SCH ×2 (09:46→20:43)
[2016-12-29] MEDS: HEPARIN SODIUM - SQ 10,000 UNITS/ML VIAL SQ SCH ×2 (09:47→20:43)
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
[2016-12-29 12:00] VITALS: BP_SYST 95; BP_SYST 97; BP_DIAS 54; BP_DIAS 61; PULSE 50; PULSE 59; RESP 18; TEMP 98; TEMP 98.2; O2SAT 94; O2SAT 97
[2016-12-29] MEDS: NS + KCL 20 MEQ INJ 1,000 ML IV SCH (12:39)
[2016-12-29 16:00] VITALS: BP 152/86; PULSE 51; RESP 18; TEMP 98.1; O2SAT 95
[2016-12-29 20:00] VITALS: BP 160/83; PULSE 51; RESP 18; TEMP 99.1; O2SAT 95
[2016-12-29] MEDS: PRAVASTATIN SOD 40 MG TAB PO SCH (20:43)
[2016-12-30] VITALS (7 sets, daily range): BP systolic 137–173; BP diastolic 76–96; PULSE 48–71; RESP 18–20; TEMP 97.6–99; O2SAT 92–97
[2016-12-30] MEDS: NS + KCL 20 MEQ INJ 1,000 ML IV SCH ×3 (00:56→20:41)
[2016-12-30] MEDS: oxyCODONE/ACETAMINOPHEN 5 MG/325 MG TAB PO PRN ×2 (02:07→10:03)
[2016-12-30] MEDS: metroNIDAZOLE 500 MG INJ 100 ML IV SCH ×3 (05:30→20:41)
[2016-12-30 08:18] LABS: AUTOMATED NEUTROPHIL # 5.4 TH/MM3 (1.8-7.7); BASOPHIL # 0.1 TH/MM3 (0-0.2); BASOPHIL % 0.9 % (0.0-2.0); EOSINOPHIL # 0.3 TH/MM3 (0-0.4); EOSINOPHIL % 3.7 % (0.0-4.0); HEMATOCRIT 32.2 % (39.0-51.0); HEMO FLAGS DIFF FINAL; LYMPH % 17.8 % (9.0-44.0); LYMPHOCYTE # 1.4 TH/MM3 (1.0-4.8); MEAN CELL VOLUME 88.6 FL (80.0-100.0); MEAN CORPUSCULAR HEMOGLOBIN 29.9 PG (27.0-34.0); MEAN CORPUSCULAR HGB CONC 33.7 % (32.0-36.0); MONO % 9.2 % (0.0-8.0); NEUT % 68.4 % (16.0-70.0); PLATELET COUNT 160 TH/MM3 (150-450); RED BLOOD COUNT 3.64 MIL/MM3 (4.50-5.90)
[2016-12-30 08:41] LABS: BICARBONATE 26.6 MEQ/L (21.0-32.0); POTASSIUM 3.8 MEQ/L (3.5-5.1)
[2016-12-30] MEDS: SODIUM CHLORIDE 0.9% FLUSH 5 ML FLUSH IV FLUSH SCH ×2 (09:00→20:41)
[2016-12-30] MEDS: risperiDONE 1 MG TAB PO SCH ×2 (10:03→20:41)
[2016-12-30] MEDS: HEPARIN SODIUM - SQ 10,000 UNITS/ML VIAL SQ SCH ×2 (10:03→20:42)
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
[2016-12-30] MEDS: PRAVASTATIN SOD 40 MG TAB PO SCH (20:41)
[2016-12-30] MEDS: ONDANSETRON HCL 4 MG/2 ML VIAL IV PUSH PRN (20:47)
[2016-12-31] VITALS: BP 154/94; PULSE 57; RESP 16; TEMP 98.8; O2SAT 96
[2016-12-31] MEDS: ONDANSETRON HCL 4 MG/2 ML VIAL IV PUSH PRN ×3 (05:19→20:46)
[2016-12-31] MEDS: metroNIDAZOLE 500 MG INJ 100 ML IV SCH ×3 (05:19→20:46)
[2016-12-31 08:00] VITALS: BP 142/85; PULSE 66; RESP 18; TEMP 98.6; O2SAT 93
[2016-12-31] MEDS: HEPARIN SODIUM - SQ 10,000 UNITS/ML VIAL SQ SCH ×2 (08:06→20:45)
[2016-12-31] MEDS: risperiDONE 1 MG TAB PO SCH ×2 (08:06→20:46)
[2016-12-31] MEDS: SODIUM CHLORIDE 0.9% FLUSH 5 ML FLUSH IV FLUSH SCH ×2 (08:06→20:45)
--- NOTE | 2016-12-31 10:15 | HHI.PYPN ---
Subjective Remarks Patient seen in his room with his mother, patient alert oriented calm cooperative, denies suicidality homicidality voices or visions. Does acknowledge occasional marijuana use patient's mother also verifies the fact that she feels her son is doing well. At this time patient no longer meets criteria for involuntary psychiatric hospital position of the Jaramillo act the subtle lift Jaramillo act. Is okay by psych for discharge when medically clear and stable. Is okay also to discontinue the Respinol at this time. To follow-up as per medical service Review of Systems Except as stated in HPI: all other systems reviewed are Neg Objective Alert: Yes [place]: Person, Place, Date, Situation Mood: Calm Affect: Euthymic Memory Intact: Immediate, Recent, Remote Hallucinations: Other (denies) Delusions: No Delusion Type: Other (none) Suicidal: Ideation (denies) Homicidal: Ideation (denies) Insight/Judgement Fair Labs Date/Time Procedure Status Source Growth 12/26/16 16:45 Stool Occult Blood (TORI) - Final Complete Stool Stool HEMOCCULT POSITIVE Vitals/IOs Vital Signs Date Time Temp Pulse Resp B/P Pulse Ox O2 Delivery O2 Flow Rate FiO2 12/31/16 08:00 98.6 66 18 142/85 93 12/29/16 04:00 Room Air Intake and Output 12/30/16 12/30/16 12/31/16 08:00 16:00 00:00 Intake Total 1232 ml 1000 ml 1154 ml Output Total 1500 ml 1600 ml Balance 1232 ml -500 ml -446 ml Assessment & Plan Problem List: (1) Unspecified psychosis ICD Code: F29 Assessment & Plan Estimated LOS: days lift Jaramillo act okay by psych for discharge medically cleared stable me discontinue the Respinol, follow-up per medical service Justification for Cont. Inpt. See above Discharge Planning See above Request HC Surrog/Guard Advoc?: No Yoseph Chong MD Dec 31, 2016 10:15
[2016-12-31 10:58] LABS: CKMB 0.5 NG/ML (0.5-3.6)
[2016-12-31 11:19] LABS: BICARBONATE 27.5 MEQ/L (21.0-32.0); POTASSIUM 3.9 MEQ/L (3.5-5.1)
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
[2016-12-31 12:00] VITALS: BP 157/104; PULSE 56; RESP 18; TEMP 98.2; O2SAT 94
[2016-12-31 16:00] VITALS: BP 165/99; PULSE 68; RESP 20; TEMP 98.4; O2SAT 96
[2016-12-31] MEDS: NS + KCL 20 MEQ INJ 1,000 ML IV SCH (17:20)
[2016-12-31 20:00] VITALS: BP 151/96; PULSE 72; RESP 18; TEMP 98.3; O2SAT 97
[2016-12-31] MEDS: PRAVASTATIN SOD 40 MG TAB PO SCH (20:46)
[2017-01-01] VITALS: BP 134/77; PULSE 71; RESP 18; TEMP 98.5; O2SAT 94
[2017-01-01 04:00] VITALS: BP 143/91; PULSE 57; RESP 17; TEMP 98.6; O2SAT 93
[2017-01-01] MEDS: NS + KCL 20 MEQ INJ 1,000 ML IV SCH (05:37)
[2017-01-01] MEDS: metroNIDAZOLE 500 MG INJ 100 ML IV SCH ×2 (05:37→14:43)
[2017-01-01] MEDS: ONDANSETRON HCL 4 MG/2 ML VIAL IV PUSH PRN (05:38)
[2017-01-01 08:00] VITALS: BP 150/90; PULSE 73; RESP 20; TEMP 98.4; O2SAT 94
[2017-01-01] MEDS: SODIUM CHLORIDE 0.9% FLUSH 5 ML FLUSH IV FLUSH SCH (08:46)
[2017-01-01] MEDS: HEPARIN SODIUM - SQ 10,000 UNITS/ML VIAL SQ SCH (08:46)
[2017-01-01] MEDS: risperiDONE 1 MG TAB PO SCH (08:46)
[2017-01-01 09:48] LABS: BICARBONATE 25.7 MEQ/L (21.0-32.0); POTASSIUM 3.8 MEQ/L (3.5-5.1)
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
[2017-01-01] MEDS ORDERED: METR500T10 PO (11:40)
[2017-01-01 12:00] VITALS: BP 162/96; PULSE 58; RESP 20; TEMP 98.1; O2SAT 95
[2017-01-01] MEDS ORDERED: REGADENOSON INJ 0.4 MG/5 ML SYR ONE (13:33)
--- NOTE | 2017-01-01 15:14 | RADRPT ---
EXAM DATE/TIME: 01/01/2017 13:14 [facility] COMPARISON: No previous studies available for comparison. INDICATIONS : Elevated troponins. Unable to walk on treadmill. DOSE: 25.8 mCi Tc99m Myoview at stress. 8.1 mCi Tc99m Myoview at rest. 0.4 mg Lexiscan STRESS SYMPTOMS: Flush, stomach cramps and low back pain. EJECTION FRACTION: 68% MEDICAL HISTORY : Smoker. SURGICAL HISTORY : None. ENCOUNTER: Initial ACUITY: 1 week PAIN SCALE: 0/10 LOCATION: chest TECHNIQUE: The patient underwent pharmacologic stress with infusion of prescribed dose. Continuous ECG tracing was monitored during stress. Gated SPECT imaging was performed after stress and conventional SPECT i maging was performed at rest. The examination was performed on a SPECT/CT scanner, both attenuation and non-corrected datasets were reviewed. FINDINGS: DISTRIBUTION: The maximum perfused segment at stress is in the anterior lateral wall. PERFUSION STUDY: The pattern of perfusion at stress is within normal limits. GATED STUDY: There is intact wall motion and thickening without hypokinetic or dyskinetic segments. CONCLUSION: Normal examination. RISK CATEGORY: Low (<1% Annual Mortality Rate) Jose Johnston MD on January 01, 2017 at 15:12 Board Certified Radiologist. This report was verified electronically.
--- NOTE | 2017-01-01 15:26 | HHI.DCPOC ---
Discharge Care Plan Diagnosis: (1) Toxic metabolic encephalopathy (2) C. difficile diarrhea (3) Sepsis (4) Metabolic acidosis (5) ALIYAH (acute kidney injury) (6) Troponin level elevated (7) Polysubstance abuse (8) Altered mental status (9) Rhabdomyolysis (10) Laceration of hand, complicated Goals to Promote Your Health * To prevent worsening of your condition and complications * To maintain your health at the optimal level Directions to Meet Your Goals Take your medications as prescribed Follow your dietary instruction Follow activity as directed Keep your appointments as scheduled Take your immunizations and boosters as scheduled If your symptoms worsen call your PCP, if no PCP go to Urgent Care Center or Emergency Room Smoking is Dangerous to Your Health. Avoid second hand smoke Call the 24-hour hour crisis hotline for domestic abuse at Prashanth Geronimo MD Jan 01, 2017 15:26
[2017-01-01 15:53] VITALS: BP 155/95; PULSE 71; RESP 20; TEMP 98; O2SAT 97
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
== END 2017-01-01 16:06 | disposition home or self-care (01) | DRG 871 ==
LOC: NEPC 05:38 → NEDA 08:17 → NEDH 13:09 → HCIN 16:25 → N04B 12-26 20:07
PROVIDERS: ADMIT Family Medicine; ATTEND Family Medicine
PROC: 0HQFXZZ Repair Right Hand Skin, External Approach (ICD-10-PCS; principal; 2016-12-24)
DX: A41.9 Sepsis, unspecified organism (principal); G92 Toxic encephalopathy; E87.2 Acidosis; E87.0 Hyperosmolality and hypernatremia; N17.9 Acute kidney failure, unspecified; A04.7 Enterocolitis due to Clostridium difficile; J90 Pleural effusion, not elsewhere classified; M62.82 Rhabdomyolysis; F13.239 Sedative, hypnotic or anxiolytic dependence with withdrawal, unspecified; E83.51 Hypocalcemia; E86.0 Dehydration; E87.6 Hypokalemia; S61.411A Laceration without foreign body of right hand, initial encounter; F29 Unspecified psychosis not due to a substance or known physiological condition; F19.10 Other psychoactive substance abuse, uncomplicated; R74.8 Abnormal levels of other serum enzymes; E87.8 Other disorders of electrolyte and fluid balance, not elsewhere classified; F17.210 Nicotine dependence, cigarettes, uncomplicated; R31.0 Gross hematuria; W26.8XXA Contact with other sharp object(s), not elsewhere classified, initial encounter
CPT/HCPCS: 12004; 51702; 70450; 71010; 73130; 73620; 74176; 76705; 76775; 78452; 80048; 80053; 80061; 80069; 80076; 80307; 80320; 80329; 81001; 82010; 82272; 82550; 82552; 82948; 83605; 83690; 83735; 83930; 84484; 85007; 85025; 85027; 85610; 85730; 86803; 87040; 87086; 87340; 87493; 93005; 93017; 93306; 96361; 96372; 96374; A9502; G0480; J0610; J0690; J1630; J1644; J1650; J2060; J2270; J2405; J2543; J2785; J3370; J3480; J7030; J7050; Q9963